=== PATIENT | male | born 1995 | race Caucasian/White ===

== ENCOUNTER 2016-11-09 00:52 | Emergency (ER) | payer BC ==
[2016-11-09] MEDS ORDERED: VYVANSE50 M1 PO (01:05)
[2016-11-09] MEDS ORDERED: CELEXA20 M2 PO (01:06)
[2016-11-09 01:24] LABS: BASO % 0.2 % (0-2); EOSINOPHIL ABSOLUTE COUNT 0.2 tho/cmm (0.0-0.7); HCT-HEMATOCRIT 43.3 % (36.0-53.5); HGB-HEMOGLOBIN 15.8 gm/dl (13.5-17.0); IMMATURE GRANULOCYTES ABSOLUTE 0.01 tho/cmm (0-0.03); IMMATURE GRANULOCYTES PERCENT 0.1 % (0-0.3); LYMPH % 30.2 % (20-45); MCH (MEAN CORPUSCULAR HGB) 29.2 pg (28.0-32.0); MCHC MEAN CORPUSCULAR HGB CONC 36.5 % (32.0-36.0); MEAN PLATELET VOLUME 9.5 cmc (9.4-12.4); MONO % 8.9 % (0-12); MONOCYTE ABSOLUTE COUNT 0.9 tho/cmm (0.0-1.2); NEUTROPHIL ABSOLUTE COUNT 5.7 tho/cmm (1.6-8.0); NEUTROPHIL-AUTOMATED 5.7 tho/cmm (1.6-8.0); NEUTROPHILS % 58.6 % (40-80); PLATELET COUNT 211 tho/cmm (150-450); RED BLOOD COUNT 5.41 mil/cmm (4.40-5.70); WHITE BLOOD COUNT 9.8 tho/cmm (4.0-10.0)
[2016-11-09 02:00] LABS: ALB/GLOB RATIO 1.2 (0.8-2.0); ALKALINE PHOSPHATASE 87 U/L (33-138); ALT/SGPT 30 U/L (12-78); ANION GAP 8 mmol/L (0-20); AST/SGOT 23 U/L (10-40); BILIRUBIN,TOTAL 0.5 mg/dl (0.0-1.5); BLOOD UREA NITROGEN 7 mg/dl (6-24); CALCIUM 8.7 mg/dl (8.5-10.5); CARBON DIOXIDE-VENOUS 28 mmol/L (22-32); CHLORIDE 103 mmol/l (96-110); CREATININE 1.14 mg/dl (0.60-1.30); GLUCOSE 91 mg/dL (70-110); LIPASE 122 U/L (73-393); POTASSIUM 3.6 mmol/L (3.7-5.1); SODIUM 135 mmol/L (135-145); eGFR VALUE FOR BLACK >90 mL/Min
[2016-11-09] MEDS ORDERED: BACTRIM DS TAB1 EAC2 PO (02:38)
[2016-11-09 02:40] LABS: URINE BILIRUBIN NEGATIVE (NEG); URINE BLOOD NEGATIVE (NEG); URINE GLUCOSE (UA) NEGATIVE (NEG); URINE KETONE NEGATIVE (NEG); URINE LEUKOCYTE ESTERASE NEGATIVE (NEG); URINE NITRITE NEGATIVE (NEG); URINE PROTEIN NEGATIVE (NEG)
[2016-11-09 02:42] LABS: URINE APPEARANCE CLEAR; URINE COLOR YELLOW
== END 2016-11-09 02:58 ==
LOC: EDMED 00:52
PROVIDERS: Emergency Medicine
PROC: BW20ZZZ Computerized Tomography (CT Scan) of Abdomen (ICD-10-PCS; principal; 2016-11-09)
DX: L03.311 Cellulitis of abdominal wall (principal); F90.9 Attention-deficit hyperactivity disorder, unspecified type; Z90.89 Acquired absence of other organs; Z79.899 Other long term (current) drug therapy
CPT/HCPCS: J1170; J2405; J7030; Q9967